=== PATIENT | male | born 1995 | race African-American/Black ===

== ENCOUNTER 2025-04-11 19:52 | Emergency (ER) | payer MEDICAID ==
[~2025-04-11] VITALS: Ht 170.2 cm; Wt 77.0 kg
[2025-04-11 20:34] VITALS: O2SAT 99
[2025-04-11] MEDS ORDERED: IBUP-2029 MT (23:04)
[2025-04-11 23:19] VITALS: TEMP 37.1; O2SAT 100
[2025-04-11] MEDS: IBUPROFEN 800MG TABLET PO ONE (23:23)
[2025-04-11 23:24] VITALS: BP 146/96; PULSE 103; RESP 20
[2025-04-11] MEDS: IBUPROFEN 800MG TABLET PO SCH (23:24)
== END 2025-04-11 23:27 | disposition home or self-care (01) ==
LOC: ER 19:52
DX: S80.02XA Contusion of left knee, initial encounter (principal); Z79.899 Other long term (current) drug therapy; X58.XXXA Exposure to other specified factors, initial encounter; Y93.89 Activity, other specified; Y92.89 Other specified places as the place of occurrence of the external cause; Y99.8 Other external cause status
CPT/HCPCS: 73562; 99283; Z7610; L1830; 29105